=== PATIENT | female | born 1970 | race Caucasian/White ===

== ENCOUNTER 2018-06-23 23:24 | Observation (INO) | payer BC ==
[~2018-06-23] VITALS: Ht 167.6 cm; Wt 81.2 kg
--- NOTE | ~2018-06-23 | CON ---
[address] [address] CONSULTATION Name: KELSEA ALONSON Room: [address] IN .R.#: [id number] Admission: 06/24/18 Attend Phys: Gabriele Cabrales MD Discharge: Date of : 66 Report #: [id number] THIS REPORT FOR: //name// CC: Reese Cabrales DATE OF SERVICE: 06/24/2018 HISTORY OF PRESENT ILLNESS: The patient is a 47-year-old white female who I was asked to see in the hospital today after she complained of chest pain. The patient has no previous history of heart disease. She stays fairly active at work, walking frequently. She has had no previous cardiac evaluation. She was doing well until recently she developed a rash in her groin. Her hand nailer thought it was from shaving. She was placed on Bactrim. She notes last week her had fever, chills and flu-like symptoms. The patient was doing well until the last few days she has had a cough that has been dry. She has felt achy all over and short of breath. She felt somewhat nauseated and diaphoretic. She notes soreness in the chest radiating to her back. It was not related to activity or meals. She has had irregular heartbeat, but no syncope. I was asked to see her for further evaluation and treatment. PAST MEDICAL HISTORY: She has had back surgery. She has no history of hypertension, diabetes, or hyperlipidemia. MEDICATIONS: Include Effexor for anxiety, Synthroid, Xanax, aspirin. She uses a hormone pellets. ALLERGIES: SHE HAS INTOLERANCE TO NEURONTIN. FAMILY HISTORY: Her father had coronary artery bypass surgery. SOCIAL HISTORY: She is . She and her live in [place]. 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 Smokes a pack of cigarettes a day, no alcohol abuse. REVIEW OF SYSTEMS: She has had no history of stroke, asthma, peptic ulcer disease, liver disease, kidney disease, cancer, chronic skin condition. PHYSICAL EXAMINATION: GENERAL: Revealed a middle-aged female who appeared in no distress. VITAL SIGNS: She had a blood pressure of 120/70, pulse 90. She is afebrile. HEENT: She was anicteric, conjunctivae pink. Mucous membranes are moist. NECK: Veins not distended. NECK: Supple. CHEST: Clear to auscultation. CARDIAC: Regular rate [place] [address] CONSULTATION Name: KELSEA ALONSO Room: [address]#: [id number] Admission: 06/24/18 Attend Phys: Gabriele Cabrales MD Discharge: Date of : 66 Report #: [id number] ABDOMEN: Soft. EXTREMITIES: Had no edema. Dorsalis pedis pulse 2+ bilaterally. SKIN: Warm, dry. NEUROLOGIC: Nonfocal. LYMPH: No adenopathy. MUSCULOSKELETAL: No joint effusion. DIAGNOSTIC DATA: Her ECG shows a sinus rhythm with nonspecific T-wave changes. Her workup in the Emergency Room yesterday, the patient had a portable chest x-ray that showed normal heart size, clear lung corral. CT scan of the chest using a PE protocol showed no evidence of pulmonary embolus. She actually had a CT scan of the abdomen and pelvis with contrast that showed no acute abnormality. LABORATORY DATA: Potassium 3.2, creatinine 1.9, glucose 111. Liver function studies were normal. Troponin 0.06. White blood cell count 5.0, hemoglobin 16.9. IMPRESSION AND RECOMMENDATIONS: 1. Bronchitis. 2. Symptoms of acute respiratory illness with fever, aches and nausea. I would rule out influenza. 3. Chest pain. Suspect bronchitis. Recommend no cardiac evaluation. 4. History of anxiety. 5. Tobacco abuse. By: [id number] Foster MD, FACC /nt
--- NOTE | ~2018-06-23 | EKG ---
[place] [address] ELECTROCARDIOGRAM REPORT Name: KELSEA ALONSO Room: [address] ADM IN .R.#: [id number] Admission: 06/24/18 Attend Phys: Gabriele Cabrales MD Discharge: Date of : 66 Report #: [id number] THIS REPORT FOR: //name// [facility] Test Date: 2018-06-24 Test Time: 05:36:25 Pat Name: KELSEA ALONSO Department: Room: [address] Gender: F Drapery Rod Assembler: ALEJANDRA : 1970 Requested By: Gabriele Cabrales Order Number: [id number] Reading MD: Measurements Intervals [place] Rate: 104 P: 79 [place]: 152 QRS: 75 QRSD: 81 T: 43 QT: 322 QTc: 424 Interpretive Statements Sinus tachycardia No previous ECG available for comparison [email or web address] By: Keyona Rand MD /EPI
[2018-06-23 23:29] VITALS: BP 138/64
[2018-06-23] MEDS ORDERED: EFFEXOR XR75 MG PO (23:40)
[2018-06-23] MEDS ORDERED: SYNTHROID100 MC1 PO (23:40)
[2018-06-23] MEDS ORDERED: XANAX 0.5 MG0.5 MG PO (23:41)
[2018-06-23 23:46] LABS: ABSOLUTE NEUTROPHILS 3.9 thou/uL (1.6-8.1); BASOPHILS 0.2 %; EOSINOPHILS 0.3 %; HEMATOCRIT 49.4 % (37.0-47.0); HEMOGLOBIN 16.9 gm/dL (12.0-15.0); LYMPHOCYTES 20.3 %; MCHC 34.3 g/dL (28.0-37.0); MCV 93.3 fL (80.0-100.0); MONOCYTES 0.5 %; MPV 8.4 fl. (7.2-11.1); NUCLEATED RBCS 0 /100WBC; PLATELET COUNT* 376 thou/uL (150-400); POLYS 78.7 %; RBC 5.29 mil/uL (4.20-5.00); RDW-CV 13.3 % (10.5-14.5)
[2018-06-23 23:58] LABS: ANION GAP 11 mmol/L (7-16); BUN 15 mg/dL (7-18); CALCIUM 8.4 mg/dL (8.5-10.1); CHLORIDE 101 mmol/L (98-107); CO2 28 mmol/L (21-32); CREATININE 0.9 mg/dL (0.6-1.3); GLUCOSE 111 mg/dL (70-99); POTASSIUM 3.2 mmol/L (3.5-5.1); SODIUM 140 mmol/L (136-145)
[2018-06-24] LABS: PROTIME 10.5 Seconds (9.20-11.50)
[2018-06-24 00:04] LABS: APTT 22.9 Seconds (25.0-31.3)
[2018-06-24 00:17] LABS: ALBUMIN 3.4 g/dL (3.4-5.0); ALKALINE PHOSPHATASE 116 U/L (46-116); CK-MB MASS 1.6 ng/mL (<0.5-3.6); LIPASE 224 U/L (73-393); MAGNESIUM 1.8 mg/dL (1.8-2.4); NT-PRO BRAIN NAT PEPTIDE 16 pg/mL (<300); SGOT 46 U/L (15-37); SGPT 41 U/L (30-65); TOTAL BILIRUBIN 0.4 mg/dL (<0.1-1.0); TROPONIN-I LEVEL <0.06 ng/mL (<0.06)
[2018-06-24 02:21] VITALS: BP 113/72
[2018-06-24] MEDS ORDERED: ASPIR 8181 MG PO (02:52)
[2018-06-24 02:53] VITALS: BP 104/67
[2018-06-24] MEDS ORDERED: DICLOFENAC SODI75 MG PO (02:56)
[2018-06-24] MEDS ORDERED: NORCO 7.5-3251 EACH PO (02:57)
[2018-06-24] MEDS ORDERED: LUNESTA1 MG PO (02:58)
[2018-06-24 08:00] VITALS: BP 108/66
--- NOTE | 2018-06-24 11:44 | EKG ---
[place] [address] ELECTROCARDIOGRAM REPORT Name: KELSEA ALONSO Room: [address] ADM IN [facility].#: [id number] Admission: 06/24/18 Attend Phys: Gabriele Cabrales MD Discharge: Date of : 66 Report #: [id number] THIS REPORT FOR: //name// [facility] ED Test Date: 2018-06-23 Test Time: 23:31:20 Pat Name: KELSEA ALONSO Department: Room: [facility] Gender: F Loan Officer: Emilio NAVARRO : 1970 Requested By: Skip Holden Order Number: [id number] MD: Mihai Foster Measurements Intervals [place] Rate: 118 P: 65 [place]: 128 QRS: 78 QRSD: 85 T: -19 QT: 313 QTc: 439 Interpretive Statements Sinus tachycardia Consider left ventricular hypertrophy Nonspecific T abnormalities, inferior leads Baseline wander in lead(s) II,III,aVF,V3,V4,V6 No previous ECG available for comparison Electronically Signed On 06-24-2018 11:44:46 RAIL SETTER by Mihai Foster [email or web address] <ELECTRONICALLY SIGNED> By: Mihai Foster MD, FACC 06/24/18 1144 [id number] [id number] Mihai Foster MD, [facility] /EPI
--- NOTE | 2018-06-24 11:51 | EKG ---
[place] [address] ELECTROCARDIOGRAM REPORT Name: KELSEA ALONSO Room: [address] ADM IN .R.#: [id number] Admission: 06/24/18 Attend Phys: Gabriele Cabrales MD Discharge: Date of : 66 Report #: [id number] THIS REPORT FOR: //name// [facility] Test Date: 2018-06-24 Test Time: 05:36:25 Pat Name: KELSEA ALONSO Department: Room: [address] Gender: F Cost Controller: ALEJANDRA : 1970 Requested By: Gabrilee Cabrales Order Number: [id number] Giuseppe MD: Mihai Foster Measurements Intervals [place] Rate: 104 P: 79 MA: 152 QRS: 75 QRSD: 81 T: 43 QT: 322 QTc: 424 Interpretive Statements Sinus tachycardia Electronically Signed On 06-24-2018 11:51:08 ASSOCIATE DIRECTOR OF DEVELOPMENT by Mihai Foster [email or web address] <ELECTRONICALLY SIGNED> By: Mihai Foster MD, [facility] 06/24/18 1151 0536 0536 Mihai Foster MD, FACC /EPI
--- NOTE | 2018-06-24 11:57 | EKG ---
[place] [address] ELECTROCARDIOGRAM REPORT Name: KELSEA ALONSO Room: [address] ADM IN .R.#: [id number] Admission: 06/24/18 Attend Phys: Gabriele Cabrales MD Discharge: Date of : 66 Report #: [id number] THIS REPORT FOR: //name// [facility] Test Date: 2018-06-24 Test Time: 11:29:53 Pat Name: KELSEA ALONSO Department: Room: [address] Gender: F Hook Tender: : 1970 Requested By: Gabriele aCbrales Order Number: [id number] Reading MD: Mihai Foster Measurements Intervals [place] Rate: 91 P: 60 AR: 161 QRS: 66 QRSD: 81 T: 57 QT: 345 QTc: 425 Interpretive Statements Sinus rhythm Electronically Signed On 06-24-2018 11:57:17 SHUFFLE BOARD OPERATOR by Mihai Foster [email or web address] <ELECTRONICALLY SIGNED> By: Mihai Foster MD, [facility] 06/24/18 1157 1129 1129 Mihai Foster MD, FACC /EPI
[2018-06-24 11:59] LABS: INFLUENZA A ANTIGEN None Detected (None Detect); INFLUENZA B ANTIGEN None Detected (None Detect)
[2018-06-24 12:04] VITALS: BP 108/61
[2018-06-24] MEDS ORDERED: DOXYCYCLINE 10100 MG PO (14:43)
[2018-06-24 15:30] VITALS: BP 108/61
[2018-06-24] MEDS ORDERED: BACTRIM DS TAB1 EACH PO (15:30)
[2018-06-27 06:05] LABS: ADENOVIRUS Negative (Negative); INFLUENZA A Negative (Negative); INFLUENZA B Negative (Negative); METAPNEUMOVIRUS Negative (Negative); PARAINFLUENZA 1 Negative (Negative); PARAINFLUENZA 2 Negative (Negative); PARAINFLUENZA 3 Negative (Negative); RHINOVIRUS Negative (Negative); RSV A Negative (Negative); RSV B Negative (Negative)
== END 2018-06-24 15:59 | disposition home or self-care (01) ==
LOC: M.ERS 23:24 → M.2W 06-24 01:51 → M.TBA-ER 06-24 01:51 → M.2W 06-24 02:06
PROVIDERS: Family Medicine; ADMIT Internal Medicine
DX: J06.9 Acute upper respiratory infection, unspecified (principal); J42 Unspecified chronic bronchitis; R11.0 Nausea; E03.9 Hypothyroidism, unspecified; G89.29 Other chronic pain; M54.9 Dorsalgia, unspecified; M19.90 Unspecified osteoarthritis, unspecified site; K21.9 Gastro-esophageal reflux disease without esophagitis; I49.9 Cardiac arrhythmia, unspecified; E11.9 Type 2 diabetes mellitus without complications; E78.5 Hyperlipidemia, unspecified; F41.9 Anxiety disorder, unspecified; I10 Essential (primary) hypertension; R21 Rash and other nonspecific skin eruption; F17.210 Nicotine dependence, cigarettes, uncomplicated; Z86.19 Personal history of other infectious and parasitic diseases; Z87.2 Personal history of diseases of the skin and subcutaneous tissue; Z79.899 Other long term (current) drug therapy; Z72.89 Other problems related to lifestyle; Z79.82 Long term (current) use of aspirin; Z98.890 Other specified postprocedural states